=== PATIENT | female | born 1980 | race African-American/Black ===

== ENCOUNTER 2017-10-10 14:12 | Outpatient (CLI) | payer OTHER, MEDICAID | END 2017-10-10 14:48 | disposition home or self-care (01) | LOC: LC 14:12 | PROVIDERS: ATTEND Obstetrics & Gynecology | PROC: 4A1HXCZ Monitoring of Products of Conception, Cardiac Rate, External Approach (ICD-10-PCS; principal; 2017-10-10) | DX: Z34.93 Encounter for supervision of normal pregnancy, unspecified, third trimester (principal); Z3A.36 36 weeks gestation of pregnancy | CPT/HCPCS: 59025 ==

== ENCOUNTER 2017-10-31 17:24 | Inpatient (IN) | payer OTHER, MEDICAID ==
[2017-10-31] MEDS ORDERED: OXYTOCIN/NORMAL SALINE 20 UNIT/1,000 ML RTUINJ IV PRN (17:39)
[2017-10-31] MEDS ORDERED: RINGERS SOLUTION,LACTATED 1,000 ML IV PRN (17:39)
[2017-10-31] MEDS ORDERED: MAG HYDROX/AL HYDROX/SIMETH SUSP 30 ML UDCUP PO PRN (17:39)
[2017-10-31] MEDS ORDERED: NORMAL SALINE 250 ML IV PRN (17:39)
[2017-10-31] MEDS ORDERED: ACETAMINOPHEN 325 MG TABLET PO PRN (17:39)
[2017-10-31] MEDS ORDERED: DINOPROSTONE 10 MG VAGINAL INSERT.SR PV PRN (17:39)
[2017-10-31] MEDS ORDERED: ZOLPIDEM TARTRATE 5 MG TABLET PO PRN (17:39)
[2017-10-31] MEDS ORDERED: RINGERS SOLUTION,LACTATED 300 ML IV ONE ×2 (17:39)
[2017-10-31 18:24] LABS: ABSOLUTE BASOPHILS # (AUTO) 0.1 10^3/uL (0.0-0.2); ABSOLUTE EOSINOPHILS # (AUTO) 0.1 10^3/uL (0.0-0.6); ABSOLUTE MONOCYTES (AUTO) 0.7 10^3/uL (0.1-1.4); BASOPHILS % (AUTO) 0.6 % (0-2); EOSINOPHILS % (AUTO) 0.8 % (0-6); HEMATOCRIT 32.6 % (36.0-47.0); HEMOGLOBIN 10.9 g/dL (12.0-15.5); LYMPHOCYTES % (AUTO) 18.5 % (13-45); MEAN CORPUSCULAR HEMOGLOBIN 27.3 pg (27.0-33.4); MEAN CORPUSCULAR HGB CONC 33.4 g/dL (32.0-36.0); MEAN CORPUSCULAR VOLUME 82 fl (80-97); MONOCYTES % (AUTO) 6.1 % (3-13); PLATELET COUNT 307 10^3/uL (150-450); RED BLOOD COUNT 3.98 10^6/uL (3.72-5.28); RED CELL DISTRIBUTION WIDTH 13.8 % (11.5-14.0); TOTAL CELLS COUNTED % (AUTO) 100 %; WHITE BLOOD COUNT 10.8 10^3/uL (4.0-10.5)
[2017-10-31 18:25] LABS: APPEARANCE,URINE CLOUDY; BILIRUBIN,URINE NEGATIVE (NEGATIVE); COLOR,URINE AMBER; GLUCOSE, URINE NEGATIVE (NEGATIVE); KETONES,URINE 80 mg/dL (NEGATIVE); LEUKOCYTE ESTERASE,URINE MODERATE (NEGATIVE); NITRITE,URINE NEGATIVE (NEGATIVE); PROTEIN,URINE 100 mg/dL (NEGATIVE)
[2017-10-31] MEDS ORDERED: DINOPROSTONE 10 MG VAGINAL INSERT.SR ONE (18:27)
[2017-10-31] MEDS: RINGERS SOLUTION,LACTATED 1,000 ML IV PRN (18:37)
[2017-10-31 18:41] LABS: ALANINE AMINOTRANSFERASE 21 U/L (9-52); ALBUMIN 3.7 g/dL (3.5-5.0); ALKALINE PHOSPHATASE 115 U/L (38-126); ANION GAP 12 (5-19); ASPARTATE AMINO TRANSFERASE 16 U/L (14-36); BILIRUBIN,DIRECT 0.2 mg/dL (0.0-0.4); BILIRUBIN,TOTAL 0.3 mg/dL (0.2-1.3); BLOOD UREA NITROGEN 6 mg/dL (7-20); CALCIUM 9.2 mg/dL (8.4-10.2); CARBON DIOXIDE 21 mmol/L (22-30); CHLORIDE 106 mmol/L (98-107); GLUCOSE 144 mg/dL (75-110); POTASSIUM 3.6 mmol/L (3.6-5.0); SODIUM 138.8 mmol/L (137-145); TOTAL PROTEIN 6.4 g/dL (6.3-8.2)
[2017-10-31 18:54] LABS: URINE AMPHETAMINES SCREEN NEGATIVE; URINE BARBITURATES SCREEN NEGATIVE; URINE BENZODIAZEPINES SCREEN NEGATIVE; URINE COCAINE SCREEN NEGATIVE; URINE MARIJUANA (THC) SCREEN NEGATIVE; URINE METHADONE SCREEN NEGATIVE; URINE PHENCYCLIDINE SCREEN NEGATIVE
[2017-11-01] MEDS: RINGERS SOLUTION,LACTATED 1,000 ML IV PRN (01:38)
[2017-11-01] MEDS ORDERED: MISOPROSTOL 0.1 MG TABLET ONE ×3 (09:02→17:51)
[2017-11-01] MEDS ORDERED: MISOPROSTOL 0.2 MG TABLET PO ONE ×2 (09:09→14:30)
[2017-11-01] MEDS ORDERED: DINOPROSTONE 10 MG VAGINAL INSERT.SR PV PRN (22:24)
[2017-11-01] MEDS ORDERED: DINOPROSTONE 10 MG VAGINAL INSERT.SR PV ONE (22:24)
[2017-11-01] MEDS ORDERED: DINOPROSTONE 10 MG VAGINAL INSERT.SR ONE (22:59)
[2017-11-02] MEDS ORDERED: NALBUPHINE HCL INJ 10 MG/1 ML AMPULE ONE (04:32)
[2017-11-02] MEDS ORDERED: PROMETHAZINE HCL INJ 25 MG/1 ML VIAL ONE (04:32)
[2017-11-02] MEDS ORDERED: PROMETHAZINE HCL INJ 25 MG/1 ML VIAL IV ONE (04:33)
[2017-11-02] MEDS ORDERED: NALBUPHINE HCL INJ 10 MG/1 ML AMPULE INJ ONE (04:33)
[2017-11-02] MEDS: RINGERS SOLUTION,LACTATED 1,000 ML IV PRN (05:27)
--- NOTE | 2017-11-02 16:14 | L&D Progress Notes ---
PROGRESS NOTES Datetime Report Generated by BRAD: 11/02/2017 16:13 PROGRESS NOTE Impression Other: desires a break for IOL Procedures: Sterile Vag Exam Plan: Induction Informed Consent Obtained: Vaginal Delivery; Induction of Labor; Risks, Benefits and Alternatives Discussed Vital Signs : Reviewed Comment: Pt advised regarding plan to continue with IOL with cooks catheter/FB and pitocin. She does not desire epidural. However, reviewed with pt that since she has difficulty with pelvic exams that would recommend either epidural or Demerol/stronger pain meds for that placement since it would be uncomfortable. She reports she is tired and desires to have a break from IOL. She was started on cervidil on 10/31 and then cytotec during the day on 11/01 and then cervidil 11/01 evening. She refused repeat blood draw today. No labs since 10/31. She was offered to proceed with IOL or a break. She reported that she was going to leave AMA but decided to stay and take a break from IOL. Cervidil removed by JILL ALMONTE. Plan to begin pitocin and start Cooks catheter in am. She is agreeable to this plan and hopefully will allow us to draw blood to have a current labs in am. VAGINAL EXAM Dilatation: ft Dilatation: 0 Effacement: thin Effacement: 50 Station: -3 Station: -2 Contractions: irregular Contractions: irregular MEMBRANES Membranes: Intact Membranes: Intact FETUS A FHR - Baseline: 160 Monitoring: External US Variability: Moderate 6-25bpm Accelerations: 15X15 Decelerations: None FHR Category: Category I Presentation: Vertex SIGNATURE SIGNATURE: [id number] Signature: with User ID: [email or web address]
[2017-11-02] MEDS ORDERED: ONDANSETRON 4 MG TAB.RAPDIS PO ONE (19:24)
[2017-11-02] MEDS ORDERED: ONDANSETRON 4 MG TAB.RAPDIS ONE (19:25)
--- NOTE | 2017-11-02 20:52 | Non Stress Test Report ---
Non Stress Test Datetime Report Generated by CPN: 11/02/2017 20:52 DEMOGRAPHIC EGA NST: 39.4 EGA NST: 39.4 EGA NST: 36.2 INDICATION Indication for Study: Ordered by Provider Indication for Study: Ordered by Provider Indication for Study: Diabetes Mellitus; Ordered by Provider MONITORING Monitor Explained: Monitor Explained; Test Explained; Patient Verbalized Understanding Monitor Explained: Monitor Explained; Test Explained; Patient Verbalized Understanding Monitor Explained: Monitor Explained; Test Explained; Patient Verbalized Understanding Time on Monitor: 11/02/2017 20:28 Time on Monitor: 11/02/2017 10:31 Time on Monitor: 10/10/2017 14:20 Time off Monitor: 11/02/2017 20:50 Time off Monitor: 11/02/2017 11:34 Time off Monitor: 10/10/2017 14:51 NST Duration: 22 NST Duration: 63 NST Duration: 31 NST INTERVENTIONS NST Interventions: PO Hydration; Reposition Patient NST Interventions: PO Hydration; IV Fluids NST Interventions: PO Hydration Physician Notified NST: Dr. Siddiqui Physician Notified NST: Jennifer Grant CNM Physician Notified NST: Rona Saunders CNM BABY A: [id number] BABY A Movement : Present Movement : Present Movement : Present Contraction Frequency : none Contraction Frequency : Irregular Contraction Frequency : none FHR Baseline : 145 FHR Baseline : 145 FHR Baseline : 145 Accelerations : 15X15 Accelerations : 15X15 Accelerations : 15X15 Decelerations : None Decelerations : None Decelerations : None Variability : Moderate 6-25bpm Variability : Moderate 6-25bpm Variability : Moderate 6-25bpm NST Review: Meets Criteria for Reactive NST NST Review: Meets Criteria for Reactive NST NST Review: Meets Criteria for Reactive NST NST Review and Verified By : Neris Mendoza RN NST Review and Verified By : Jennifer Torrez RN NST Results: Reactive NST Results: Reactive NST Results: Reactive NST REPORT Report Trigger: Send Report
[2017-11-03] MEDS ORDERED: FENTANYL/BUPIVACAINE/NS/PF 200 MCG/100 ML RTUINJ EPI ONE ×2 (06:20→15:19)
[2017-11-03] MEDS ORDERED: EPHEDRINE SULFATE INJ 50 MG/1 ML AMPULE ONE (06:20)
[2017-11-03] MEDS ORDERED: BUPIVACAINE HCL 0.25 % INJ/PF (2.5 MG/1 ML) 30 ML VIAL ONE ×2 (06:21→15:15)
[2017-11-03 06:41] LABS: ABSOLUTE BASOPHILS # (AUTO) 0.1 10^3/uL (0.0-0.2); ABSOLUTE LYMPHOCYTES (AUTO) 1.5 10^3/uL (0.5-4.7); ABSOLUTE MONOCYTES (AUTO) 1.1 10^3/uL (0.1-1.4); ABSOLUTE NEUT (AUTO) 11.3 10^3/uL (1.7-8.2); BASOPHILS % (AUTO) 0.5 % (0-2); EOSINOPHILS % (AUTO) 0.1 % (0-6); HEMATOCRIT 32.5 % (36.0-47.0); HEMOGLOBIN 11.1 g/dL (12.0-15.5); LYMPHOCYTES % (AUTO) 10.9 % (13-45); MEAN CORPUSCULAR HEMOGLOBIN 27.8 pg (27.0-33.4); MEAN CORPUSCULAR HGB CONC 34.3 g/dL (32.0-36.0); MEAN CORPUSCULAR VOLUME 81 fl (80-97); PLATELET COUNT 269 10^3/uL (150-450); RED BLOOD COUNT 4.01 10^6/uL (3.72-5.28); RED CELL DISTRIBUTION WIDTH 13.9 % (11.5-14.0); SEGMENTED NEUTROPHILS % (AUTO) 80.5 % (42-78); TOTAL CELLS COUNTED % (AUTO) 100 %
[2017-11-03] MEDS ORDERED: OXYTOCIN/NORMAL SALINE 0 UNIT/0 ML RTUINJ ONE (06:42)
[2017-11-03] MEDS ORDERED: PENICILLIN G-K 5 MILLION UNIT VIAL ONE ×3 (06:50→17:11)
--- NOTE | 2017-11-03 07:47 | L&D Progress Notes ---
PROGRESS NOTES Datetime Report Generated by CPN: 11/03/2017 07:47 PROGRESS NOTE Impression: Normal Progression of Labor Procedures: Sterile Vag Exam; Sterile Speculum Exam Procedures- Other: Cooks catheter placement Plan: Continue Present Management; Induction; Cervical Ripening Informed Consent Obtained: Vaginal Delivery; Risks, Benefits and Alternatives Discussed Vital Signs : Reviewed Comment: Pt took a break overnight and now are restarting IOL. COoks catheter placed and pitocin started. Pt does not tolerated cervical exams so now has an epidural. Will continue with IOL. Pelvis adequate for JAKE. Anticpate . VAGINAL EXAM Dilatation: 1 Effacement: 70 Station: -3 Contractions: q 1-5 FETUS A FHR - Baseline: 160 Monitoring: External US Variability: Moderate 6-25bpm Accelerations: 15X15 Decelerations: None FETUS C SIGNATURE: [id number];[id number] SIGNATURE: [id number] Signature: with User ID: [email or web address]
--- NOTE | 2017-11-03 14:49 | L&D Progress Notes ---
PROGRESS NOTES Datetime Report Generated by CPN: 11/03/2017 14:48 PROGRESS NOTE Procedures: Artificial ROM Plan: Continue Present Management Comment: epidural placed early this am pitocin infusion mgmt plan discussed with Dr. Corona VAGINAL EXAM Dilatation: 1 Effacement: 80 Station: -1 MEMBRANES Amniotic Fluid Color: Clear FETUS A FHR - Baseline: 150 Monitoring: External US Variability: Moderate 6-25bpm Decelerations: None : 39.5 FETUS C SIGNATURE: [id number];[id number] Assignment: Rishi Corona MD Signature: with User ID: [email or web address] : with User ID: [email or web address]
[2017-11-03] MEDS ORDERED: LIDOCAINE 1% INJ-PF (10 MG/ML) 30 ML SDV ONE ×2 (17:35→19:17)
[2017-11-03] MEDS ORDERED: OXYTOCIN/NORMAL SALINE 20 UNIT/1,000 ML RTUINJ ONE ×2 (17:35→17:36)
[2017-11-03] MEDS ORDERED: MISOPROSTOL 0.2 MG TABLET ONE ×2 (17:35)
[2017-11-03] MEDS ORDERED: MEASLES,MUMPS&RUBELLA VACC/PF 0.5 ML VIAL SUBCUT PRN (21:49)
[2017-11-03] MEDS ORDERED: NA PHOS,M-B/NA PHOS,DI-BA (ADULT) 133 ML ENEMA PR PRN (21:49)
[2017-11-03] MEDS ORDERED: ZOLPIDEM TARTRATE 5 MG TABLET PO PRN (21:49)
[2017-11-03] MEDS ORDERED: ACETAMINOPHEN 650 MG SUPP.RECT PR PRN (21:49)
[2017-11-03] MEDS ORDERED: BENZOCAINE/MENTHOL AEROSOL SPRAY 56 ML TOP PRN (21:49)
[2017-11-03] MEDS ORDERED: DIBUCAINE 1% OINTMENT 28 GM TP PRN (21:49)
[2017-11-03] MEDS ORDERED: ACETAMINOPHEN WITH CODEINE #3 TABLET PO PRN ×2 (21:49)
[2017-11-03] MEDS ORDERED: GLYCERIN/WITCH HAZEL LEAF 1 EACH MED..PAD TP PRN (21:49)
[2017-11-03] MEDS ORDERED: PSEUDOEPHEDRINE HCL 30 MG TABLET PO PRN (21:49)
[2017-11-03] MEDS ORDERED: PROMETHAZINE HCL INJ 25 MG/1 ML VIAL IV PRN (21:49)
[2017-11-03] MEDS ORDERED: PROMETHAZINE HCL 25 MG TABLET PO PRN (21:49)
[2017-11-03] MEDS ORDERED: MAGNESIUM HYDROXIDE SUSP 30 ML UDCUP PO PRN (21:49)
[2017-11-03] MEDS ORDERED: PROMETHAZINE HCL 25 MG SUPP.RECT PR PRN (21:49)
[2017-11-03] MEDS ORDERED: OXYTOCIN/NORMAL SALINE 20 UNIT/1,000 ML RTUINJ IV PRN (21:49)
[2017-11-03] MEDS ORDERED: DIPH/PERTUSS(ACELL)/TETANUS VAC/PF 0.5 ML SYR (>=10YO) IM PRN (21:49)
[2017-11-03] MEDS ORDERED: DIPHENHYDRAMINE HCL 25 MG CAPSULE PO PRN (21:49)
--- NOTE | 2017-11-03 23:02 | Warning Signs in Babies ---
VOD Warning Signs Datetime Report Generated by [facility]: 11/03/2017 23:02 VOD#608 -Warning Signs in Babies: Viewed with Parent(s)/Family (10/31/2017 17:00:Jeannette Leyva RN)
--- NOTE | 2017-11-03 23:36 | Admission Physical ---
Datetime Report Generated by CPN: 11/03/2017 23:36 CURRENT ADMISSION Hx Assessment: The History has been Reviewed and is Current Chief Complaint: Scheduled Induction of Labor Indication for Induction: Other Indication for Induction: Term, Intrauterine ; Induction of Labor Indication for Induction- Other: GDM A2 Admit Plan: Admit to Unit; Initiate Labor Induction Protocol ALLERGIES Medication Allergies: Yes Medication Allergies: Yes Medication Allergies: Penicillins (10/31/2017) Medication Allergies: Penicillins (10/10/2017) Medication Allergies: Penicillins (08/27/2014) Latex: No Latex Allergies OBSTETRICAL HISTORY EDC: 11/05/2017 00:00 : 3 Para: 0 Term: 0 : 0 SAB: 0 IAB: 2 Ectopic: 0 Livin Cesareans: 0 VBACs: 0 Multiple Births: 0 Gestational Diabetes: Yes Rh Sensitization: No Incompetent Cervix: No MACKENZIE: No Infertility: No ART Treatment: No Uterine Anomaly: No IUGR: No Hx Previous C/S: No Macrosomia: No Hx Loss/Stillborn: No PIH: No Hx : No Placenta Previa/Abruption: No Depression/PP Depression: No PTL/PROM: No Post Hemorrhage: No Current Procedures: Ultrasound Obstetrical History Comments: G1 EAB 1998 10 tri G2 EAB 2002 10 tri G3 current SEE RECORDS Alcohol: No Marijuana : No Cocaine: No Other Illicit Drugs: No Cigarettes: Current Some Day Smoker. 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 Surgery: No Heart Disease: No Hosp/Surgery: No Autoimmune Disorder: No Anesthetic Complications: No Kidney Disease: No Abnormal Pap Smear: No Neuro/Epilepsy: No Psychiatric Disorders: No Other Medical Diseases: No Hepatitis/Liver Disease: No Significant Family History: No Varicosities/Phlebitis: No Trauma/Violence : No Thyroid Dysfunction: Yes Medical History Comments: parathyroid removed; GDM on Glyburide INFECTIOUS HISTORY Gonorrhea: No Genital Herpes: No Chlamydia: No Tuberculosis: No Syphilis: No Hepatitis: No HIV/AIDS Exposure: No Rash or Viral Illness: No HPV: No PHYSICAL EXAM General: Normal HEENT: Deferred Neurologic: Normal Thyroid: Deferred Heart: Normal Lungs: Normal Breast: Deferred Back: Normal Abdomen: Normal Genitourinary Exam: Normal Extremities: Normal DTRs: Normal Pelvic Type: Adequate Vital Signs: Reviewed; Within Normal Limits VAGINAL EXAM Dilatation: 1 Dilatation: 1 Dilatation: ft Dilatation: 0 Effacement: 80 Effacement: 70 Effacement: thin Effacement: 50 Station: -1 Station: -3 Station: -3 Station: -2 Contraction Comments: q 1-5 Contraction Comments: irregular Contraction Comments: irregular MEMBRANES Membranes: Intact Membranes: Intact Amniotic Fluid Color: Clear FETUS A EGA: 39.3 Monitoring: External US FHR- Baseline: 140 Variability: Moderate 6-25bpm Accelerations: 15X15 Decelerations: None FHR Category: Category I Presentation: Vertex Admit Comment: 36yo @ 39w3d O pos, [place], GBS positive (previously reported PCN allergy but after further investigation pt. reports she has never had PCN but her mother is allergic so she thought she would be allergic) who was admitted last night for IOL secondary to GDM A2 (takes glyburide qd). Pt. had cervidil last night and cervix is still closed this morning. Discussed cervical exam with Dr. Viera who is the OB doctor restoration silversmith today and agreeable to cytotec at this time. Medical hx significant for parathyroidectomy, hemorrhoidectomy and cigarrete smoking. Denies any other significant hx. Reports +FM, denies LOF/bleeding. Irregular contractions with cervidil. PLANS FOR LABOR AND DELIVERY Labor and Delivery: None Pain Management: Natural; Medications; Epidural Feeding Preference: Both Benefit of Breast Feed Discussed: Yes Circumcision: N/A INFORMED CONSENT Informed Consent Obtained: Vaginal Delivery; Risks, Benefits and Alternatives Discussed Informed Consent Obtained: Vaginal Delivery; Induction of Labor; Risks, Benefits and Alternatives Discussed Assignment: Samira Viera MD Signature: with User ID: [email or web address] : with User ID: [email or web address]
[2017-11-03] MEDS: IBUPROFEN 800 MG TABLET PO SCH (23:54)
--- NOTE | 2017-11-04 00:44 | Delivery Summary ---
Del Sum A-C Datetime Report Generated by CPN: 11/04/2017 00:44 DELIVERY PERSONNEL DELIVERY PERSONNEL: [id number] Delivery Doctor:: Rishi Corona MD Labor and Delivery Nurse:: Jeannette Leyva RNcorn sheller operator Nurse:: Edith Mendoza RN Mat Maker:: Thalia Garcia RN Tractor Driver/CONTINUOUS PROCESS MACHINE OPERATOR: Lucasgiovanni Evans, CONTINUOUS PROCESS MACHINE OPERATOR MATERNAL INFORMATION Delivery Anesthesia: Epidural Medications After Delivery: Pitocin Bolus-Please Comment Meds After Delivery Comment: Pitocin 20 units in 1 L NS bolusing per order Estimated Blood Loss (ml): 250 Maternal Complications: None LABOR SUMMARY EDC: 11/05/2017 00:00 No. Babies in Womb: 1 Attempted: No Labor Anesthesia: Epidural LABOR INFORMATION Reason for Induction: Maternal Diabetes; Other Reason for Induction- Other: GDM Onset of Labor: 11/03/2017 14:25 Complete Dilatation: 11/03/2017 21:22 Cervical Ripening Agents: Cervidil; An Balloon; Cytotec @ Oxytocin: Induction Group B Beta Strep: POSITIVE Antibiotics # of Doses: 3 Antibiotics Time of Last Dose: 171 Name of Antibiotic Given: PCN Steroids Given: None Reason Steroids Not Administered: Not Applicable MEMBRANES Membranes Rupture Method: Artificial Rupture of Membranes: 11/03/2017 14:25 Length of Rupture (hr): 7.18 Amniotic Fluid Color: Clear Amniotic Fluid Amount: Small Amniotic Fluid Odor: None STAGES OF LABOR Stage 1 hr: 6 Stage 1 min: 57 Stage 2 hr: 0 Stage 2 min: 14 Stage 3 hr: 0 Stage 3 min: 4 Total Time in Labor hr: 7 Total Time in Labor min: 15 VAGINAL DELIVERY Episiotomy: None Laceration #1: Periurethral Laceration Extension #1: First Degree Laceration Repair: Yes Laceration Repair Note: small periurethral repaired with one 3-0 chromic suture Sponge Count Correct: N/A; Vaginal Sweep Performed Sharps Count Correct: N/A CSECTION DELIVERY Primary Indication: N/A Secondary Indication: N/A CSection Incidence: N/A Labor: N/A Elective: N/A CSection Incision: N/A BABY A INFORMATION Delivery Date/Time: 11/03/2017 21:36 Method of Delivery: Vaginal Born in Route : No : N/A Forceps: N/A Vacuum Extraction: N/A Shoulder Dystocia : No PRESENTATION/POSITION BABY A Presentation: Cephalic Cephalic Presentation: Vertex Vertex Position: Left Occipital Anterior Breech Presentation: N/A PLACENTA INFORMATION BABY A Placenta Delivery Time : 11/03/2017 21:40 Placenta Method of Delivery: Spontaneous Placenta Status: Delivered SCORES BABY A Heart Rate 1 min: >100 bpm Resp Effort 1 min: Good Cry Reflex Irritability 1 min: Cough or Sneeze or Pulls Away Muscle Tone 1 min: Active Motion Color 1 min: Body [place], Extremities Blue Resuscitation Effort 1 min: Tactile Stimulation SCORE 1 MIN: 9 Heart Rate 5 min: >100 bpm Resp Effort 5 min: Good Cry Reflex Irritability 5 min: Cough or Sneeze or Pulls Away Muscle Tone 5 min: Active Motion Color 5 min: Body [place], Extremities Blue SCORE 5 MIN: 9 INFANT INFORMATION BABY A Gestational Age at Delivery: 39.5 Gestational Status: Full Term- 39- 40.6 Weeks Infant Outcome : Liveborn Infant Condition : Stable Infant Sex: Female IDENTIFICATION BABY A Verification Date/Time: 11/03/2017 22:15 ID Band Number: [id number] Mother's Name Verified: Yes RN Verifying : Néstor Leyva RN/N. James RN WEIGHT/LENGTH BABY A Infant Birthweight (gm): 3200 Weight (lb): 7 Infant Weight (oz): 1 Length (in): 19.50 Infant Length (cm): 49.53 CORD INFORMATION BABY A No. Cord Vessels: 3 Nuchal Cord : N/A Cord Blood Taken: Yes-For Eval (Mom's Blood Type - or O+) Suction: None ASSESSMENT BABY A Complications: None Physical Findings at Delivery: Within Normal Limits Infant Respirations: Appears Normal Skin to Skin: Yes Skin to Skin Time (min): 60 Senior Enterprise Architect/ALS Called : No Infant Care By: Lyn Garcia, RN Transferred To: Remains with Mother BABY B INFORMATION : N/A SIGNATURES Signature: with User ID: [email or web address] : I was personally available for consultation and serving as supervising physician for the MLP.
[2017-11-04] MEDS: FAMOTIDINE 20 MG TABLET PO SCH ×3 (02:57→21:11)
[2017-11-04] MEDS: IBUPROFEN 800 MG TABLET PO SCH ×3 (06:38→21:11)
[2017-11-04 07:23] LABS: HEMATOCRIT 28.8 % (36.0-47.0); HEMOGLOBIN 9.5 g/dL (12.0-15.5); MEAN CORPUSCULAR HEMOGLOBIN 27.2 pg (27.0-33.4); MEAN CORPUSCULAR HGB CONC 33.1 g/dL (32.0-36.0); MEAN CORPUSCULAR VOLUME 82 fl (80-97); PLATELET COUNT 250 10^3/uL (150-450); WHITE BLOOD COUNT 22.8 10^3/uL (4.0-10.5)
[2017-11-04] MEDS: SENNOSIDES/DOCUSATE 8.6-50 MG 1 EACH TABLET PO SCH (09:56)
[2017-11-04] MEDS: PRENATAL VITAMIN W DHA CAPSULE PO SCH (09:56)
[2017-11-04] MEDS: FERROUS SULFATE 325 MG TABLET PO SCH ×2 (09:57→18:36)
[2017-11-04] MEDS: DOCUSATE SODIUM 100 MG CAPSULE PO SCH ×2 (09:57→18:36)
--- NOTE | 2017-11-04 12:26 | PDOC PROGRESS REPORT ---
Subjective Progress Note for:: 11/04/17 Subjective:: s/p vaginal delivery last night. doing well. ambulating without difficulty. minimal lochia. Reason For Visit: INDUCTION FOR GDM Physical Exam - Physical Exam Vital Signs: Temp Pulse Resp BP Pulse Ox 98.4 F 87 17 113/54 L 100 11/04/17 08:24 11/04/17 08:24 11/04/17 08:24 11/04/17 08:24 11/04/17 08:24 General appearance: PRESENT: no acute distress, cooperative GI/Abdominal exam: PRESENT: soft - fundus below umbilicus Result Laboratory Results: 11/04/17 07:04 10/31/17 18:05 11/04/17 07:04 WBC 22.8 H RBC 3.50 L Hgb 9.5 L Hct 28.8 L MCV 82 MCH 27.2 MCHC 33.1 RDW 14.0 Plt Count 250 Assessment & Plan - Plan Summary Plan Summary: discharge in AM. continue routine care
[2017-11-05] MEDS: IBUPROFEN 800 MG TABLET PO SCH (06:28)
[2017-11-05 08:33] VITALS: BP 113/70
--- NOTE | 2017-11-05 09:19 | PDOC PROGRESS REPORT ---
Subjective-OB Subjective: Post Delivery Day: 36 year old. Denies any needs at this time well bonding with baby WBC elevated nontender abdomen ff@u-1 mod lochia repeat CBC this morning- stat precautions given d/c pt home Physical Exam (OB) Vital Signs: Temp Pulse Resp BP Pulse Ox 98.1 F 70 17 113/70 100 11/05/17 07:59 11/05/17 07:59 11/05/17 07:59 11/05/17 07:59 11/05/17 07:59 Intake & Output 11/04/17 11/05/17 11/06/17 06:59 06:59 06:59 Intake Total 900 Balance 900 - Lochia Lochia Amount: Scant < 10 ml Lochia Color: Rubra/Red - Abdomen Description: Soft Hernia Present: No Fundal Description: Firm, Midline Fundal Height: u/u - u/2 Objective-Diagnostic Laboratory: 11/04/17 07:04 10/31/17 18:05
--- NOTE | 2017-11-05 09:22 | PDOC DISCHARGE SUMMARY ---
Final Diagnosis Discharge Date: 11/05/17 - Final Diagnosis (1) Normal vaginal delivery Is this a current diagnosis for this admission?: Yes (2) Gestational diabetes Is this a current diagnosis for this admission?: Yes Discharge Data - Discharge Medication Home Medications: Ferrous Sulfate [Iron] 325 mg PO DAILY 10/10/17 Glyburide 2.5 mg PO DAILY 10/10/17 No122/Iron/Folic Acid [ Multi Tablet] 1 each PO DAILY 10/10/17 Reason(s) for Admission: Induction of Labor Procedures: NST Intrapartum Procedure(s): Spontaneous Vaginal Delivery Complication(s): Laceration-Perineal Laceration-Degree: 1st - Diagnosis Test Laboratory: Temp Pulse Resp BP Pulse Ox 98.1 F 70 17 113/70 100 11/05/17 07:59 11/05/17 07:59 11/05/17 07:59 11/05/17 07:59 11/05/17 07:59 10/31/17 10/31/17 11/03/17 17:24 18:05 06:27 RBC 3.98 4.01 Hgb 10.9 L 11.1 L Hct 32.6 L 32.5 L Urine Opiates Screen NEGATIVE 11/04/17 07:04 RBC 3.50 L Hgb 9.5 L Hct 28.8 L Urine Opiates Screen - Discharge information/Instructions Discharge Activity: Activity As Tolerated Discharge Diet: Regular Disposition: HOME, SELF-CARE Follow up with: [facility] in: 4
[2017-11-05] MEDS: PRENATAL VITAMIN W DHA CAPSULE PO SCH (10:36)
[2017-11-05] MEDS: SENNOSIDES/DOCUSATE 8.6-50 MG 1 EACH TABLET PO SCH (10:36)
[2017-11-05] MEDS: FAMOTIDINE 20 MG TABLET PO SCH (10:36)
[2017-11-05] MEDS: FERROUS SULFATE 325 MG TABLET PO SCH (10:36)
[2017-11-05] MEDS: DOCUSATE SODIUM 100 MG CAPSULE PO SCH (10:37)
[2017-11-05 11:47] LABS: ABSOLUTE EOSINOPHILS # (AUTO) 0.1 10^3/uL (0.0-0.6); ABSOLUTE LYMPHOCYTES (AUTO) 2.5 10^3/uL (0.5-4.7); ABSOLUTE MONOCYTES (AUTO) 0.9 10^3/uL (0.1-1.4); ABSOLUTE NEUT (AUTO) 7.9 10^3/uL (1.7-8.2); BASOPHILS % (AUTO) 0.4 % (0-2); EOSINOPHILS % (AUTO) 0.5 % (0-6); HEMATOCRIT 28.5 % (36.0-47.0); HEMOGLOBIN 9.5 g/dL (12.0-15.5); LYMPHOCYTES % (AUTO) 21.8 % (13-45); MEAN CORPUSCULAR HEMOGLOBIN 27.3 pg (27.0-33.4); MEAN CORPUSCULAR HGB CONC 33.3 g/dL (32.0-36.0); MEAN CORPUSCULAR VOLUME 82 fl (80-97); MONOCYTES % (AUTO) 7.7 % (3-13); PLATELET COUNT 276 10^3/uL (150-450); RED BLOOD COUNT 3.47 10^6/uL (3.72-5.28); RED CELL DISTRIBUTION WIDTH 14.3 % (11.5-14.0); SEGMENTED NEUTROPHILS % (AUTO) 69.6 % (42-78); TOTAL CELLS COUNTED % (AUTO) 100 %; WHITE BLOOD COUNT 11.3 10^3/uL (4.0-10.5)
== END 2017-11-05 12:23 | disposition home or self-care (01) | DRG 775 ==
LOC: LR 17:24 → EEVIPCON 17:24 → 2S 11-03 23:34
PROVIDERS: ADMIT Obstetrics & Gynecology Gynecology; ATTEND Obstetrics & Gynecology Gynecology
PROC: 4A1HXCZ Monitoring of Products of Conception, Cardiac Rate, External Approach (ICD-10-PCS; 2017-10-31)
PROC: 10E0XZZ Delivery of Products of Conception, External Approach (ICD-10-PCS; principal; 2017-11-03)
PROC: 0HQ9XZZ Repair Perineum Skin, External Approach (ICD-10-PCS; 2017-11-03)
PROC: 0UQMXZZ Repair Vulva, External Approach (ICD-10-PCS; 2017-11-03)
PROC: 10907ZC Drainage of Amniotic Fluid, Therapeutic from Products of Conception, Via Natural or Artificial Opening (ICD-10-PCS; 2017-11-03)
PROC: 3E0P7GC Introduction of Other Therapeutic Substance into Female Reproductive, Via Natural or Artificial Opening (ICD-10-PCS; 2017-11-03)
PROC: 0U7C7ZZ Dilation of Cervix, Via Natural or Artificial Opening (ICD-10-PCS; 2017-11-03)
DX: O24.429 Gestational diabetes mellitus in childbirth, unspecified control (principal); O99.334 Smoking (tobacco) complicating childbirth; F17.210 Nicotine dependence, cigarettes, uncomplicated; O99.284 Endocrine, nutritional and metabolic diseases complicating childbirth; E07.9 Disorder of thyroid, unspecified; O99.824 Streptococcus B carrier state complicating childbirth; O71.82 Other specified trauma to perineum and vulva; O70.0 First degree perineal laceration during delivery; Z28.21 Immunization not carried out because of patient refusal; Z3A.39 39 weeks gestation of pregnancy; Z37.0 Single live birth
CPT/HCPCS: 36415; 59025; 80053; 80307; 81005; 82962; 85025; 85027; 86592; 86850; 86900; 86901; 94760; C1726; J2300; J2540; J2550; J2590; J3490; S0119